=== PATIENT | female | born 1990 | race Caucasian/White ===

== ENCOUNTER 2016-04-15 01:46 | Inpatient (IN) | payer OTHER ==
[~2016-04-15] VITALS: Ht 154.9 cm; Wt 80.2 kg
[2016-04-15] MEDS ORDERED: IBUPROFEN 800 MG TAB PO ONE (03:00)
[2016-04-15] MEDS ORDERED: HYDROCODONE/APAP (5/325) TAB PO ONE (03:00)
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
[2016-04-15] MEDS ORDERED: SOD CHLORIDE 0.9% 1,000 ML IV SCH (04:57)
[2016-04-15] MEDS ORDERED: ONDANSETRON 4 MG INJ IV PRN (05:00)
[2016-04-15] MEDS ORDERED: ACETAMINOPHEN 325 MG TAB PO PRN ×2 (05:00→05:30)
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
--- NOTE | 2016-04-15 05:25 | RADRPT ---
PROCEDURE: XR Chest. CLINICAL INDICATION: Chest pain TECHNIQUE: A single AP view of the chest was obtained. COMPARISON: None. FINDINGS: No focal airspace opacification, pleural effusion or pneumothorax is seen. The cardiomediastinal si lhouette is within normal limits for size. The osseous structures are unremarkable. IMPRESSION: No radiographic evidence of acute cardiopulmonary disease. RPTAT: HH .Katie Corado MD, MD Date Time Electronically viewed and signed by .Katie Corado MD, on 04/15/2016 05:24 .G/
[2016-04-15] MEDS ORDERED: DOCUSATE SODIUM 100 MG CAP PO PRN (05:30)
[2016-04-15] MEDS ORDERED: NACL 0.9% 3 ML SYG IV SCH (05:30)
[2016-04-15] MEDS: SOD CHLORIDE 0.9% 1,000 ML IV SCH ×2 (05:41→16:23)
[2016-04-15 05:46] LABS: ALBUMIN 3.9 g/dl (3.3-4.9); POTASSIUM 4.1 mmol/L (3.5-5.1)
[2016-04-15 05:49] LABS: ALBUMIN/GLOBULIN RATIO 1.21; BILIRUBIN,INDIRECT 0.2 mg/dl (0-1.1); BILIRUBIN,TOTAL 0.2 mg/dl (0.2-1.3); CALCIUM 8.7 mg/dl (8.4-10.2); CREATININE 0.77 mg/dl (0.44-1.00); INR 1.03; PARTIAL THROMBOPLASTIN TIME 30.1 Sec (25.0-35.0); PROTIME 13.5 Sec (12.2-14.2); PT RATIO 1.1; TOTAL PROTEIN 7.1 g/dl (6.1-8.1)
[2016-04-15 05:54] LABS: BASOPHILS % 0.4 % (0.0-2.0); EOSINOPHILS % 0.1 % (0.0-7.0); HEMATOCRIT 35.7 % (37.0-47.0); HEMOGLOBIN 12.4 g/dl (12.0-16.0); LYMPHOCYTES # 2.2 10^3/ul (0.8-2.9); LYMPHOCYTES % 20.1 % (15.0-51.0); MEAN CORPUSCULAR HEMOGLOBIN 29.9 pg (29.0-33.0); MEAN CORPUSCULAR HGB CONC 34.8 g/dl (32.0-37.0); MEAN PLATELET VOLUME 8.4 fl (7.4-10.4); MONOCYTE # 0.8 10^3/ul (0.3-0.9); MONOCYTES % 7.1 % (0.0-11.0); NEUTROPHIL # 7.8 10^3/ul (1.6-7.5); NEUTROPHILS % 72.3 % (39.0-77.0); PLATELET COUNT 251 10^3/UL (140-440); RED BLOOD COUNT 4.15 10^6/ul (4.20-5.40); RED CELL DISTRIBUTION WIDTH 13.8 % (11.5-14.5); UNCORRECTED WBC 10.8 10^3/ul (4.8-10.8); WHITE BLOOD COUNT 10.8 10^3/ul (4.8-10.8)
[2016-04-15 06:01] LABS: CONDITION 1
[2016-04-15] MEDS: morphine 2 MG INJ IV PRN (14:11)
[2016-04-15] MEDS: FAMOTIDINE 20 MG INJ IV SCH ×2 (14:11→21:48)
[2016-04-15] MEDS: ONDANSETRON 4 MG INJ IV PRN (14:11)
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
[2016-04-15 16:05] VITALS: TEMP 98.6
[2016-04-15 16:24] VITALS: BP 117/75; PULSE 69; RESP 18
[2016-04-15] MEDS: HYDROmorphONE 1 MG/ML SYG IV PRN (16:28)
[2016-04-15 16:37] VITALS: Ht 154.9 cm; Wt 80.2 kg
[2016-04-15] MEDS ORDERED: INFLUENZA VIRUS VACCINE 0.5 ML SYG IM* ONE (17:00)
[2016-04-15 19:00] VITALS: BP 119/74; RESP 16
[2016-04-16] MEDS: ONDANSETRON 4 MG INJ IV PRN (05:22)
[2016-04-16] MEDS: HYDROmorphONE 1 MG/ML SYG IV PRN ×3 (05:24→21:02)
[2016-04-16] MEDS: SOD CHLORIDE 0.9% 1,000 ML IV SCH ×3 (05:29→18:38)
[2016-04-16 06:05] LABS: BASOPHILS % 0.4 % (0.0-2.0); EOSINOPHILS # 0.1 10^3/ul (0.0-0.5); EOSINOPHILS % 0.9 % (0.0-7.0); HEMATOCRIT 37.1 % (37.0-47.0); HEMOGLOBIN 12.4 g/dl (12.0-16.0); LYMPHOCYTES # 2.2 10^3/ul (0.8-2.9); LYMPHOCYTES % 26.3 % (15.0-51.0); MEAN CORPUSCULAR HEMOGLOBIN 29.4 pg (29.0-33.0); MEAN CORPUSCULAR HGB CONC 33.4 g/dl (32.0-37.0); MEAN PLATELET VOLUME 8.4 fl (7.4-10.4); MONOCYTE # 0.5 10^3/ul (0.3-0.9); MONOCYTES % 6.4 % (0.0-11.0); NEUTROPHIL # 5.4 10^3/ul (1.6-7.5); PLATELET COUNT 235 10^3/UL (140-440); RED BLOOD COUNT 4.21 10^6/ul (4.20-5.40); RED CELL DISTRIBUTION WIDTH 13.7 % (11.5-14.5); UNCORRECTED WBC 8.2 10^3/ul (4.8-10.8); WHITE BLOOD COUNT 8.2 10^3/ul (4.8-10.8)
[2016-04-16 06:06] LABS: CREATININE 0.79 mg/dl (0.44-1.00)
[2016-04-16 06:07] LABS: CALCIUM 8.4 mg/dl (8.4-10.2)
[2016-04-16 06:08] LABS: MAGNESIUM 1.9 mg/dl (1.7-2.5)
[2016-04-16 06:45] LABS: CONDITION 1
[2016-04-16 07:16] VITALS: BP 108/56; RESP 16
[2016-04-16 07:58] LABS: THYROID STIMULATING HORMONE 0.723 MIU/L (0.465-4.680)
[2016-04-16] MEDS: FAMOTIDINE 20 MG INJ IV SCH ×2 (08:51→21:02)
[2016-04-16] MEDS: morphine 2 MG INJ IV PRN (12:31)
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
[2016-04-16] MEDS: ENOXAPARIN 40 MG/0.4 ML SYG SC SCH (15:48)
[2016-04-16 20:22] VITALS: BP 109/57; RESP 16
[2016-04-17] MEDS: SOD CHLORIDE 0.9% 1,000 ML IV SCH ×3 (07:32→21:22)
[2016-04-17] MEDS: FAMOTIDINE 20 MG INJ IV SCH ×2 (08:25→21:23)
[2016-04-17 08:28] VITALS: BP 108/65; RESP 18
[2016-04-17] MEDS: ENOXAPARIN 40 MG/0.4 ML SYG SC SCH (08:29)
--- NOTE | 2016-04-17 09:29 | RADRPT ---
Vent Rate: 56 bpm RR Interval: 0 msec SC Interval: 138 msec QRS Duration: 84 msec QT Interval: 356 msec QTC Interval: 343 msec P-R-T Binger: 35 - 47 - 43 degrees Sinus bradycardia with sinus arrhythmia Otherwise normal ECG Electronically Signed By: Ish Gonzalez [id number]
[2016-04-17] MEDS: HYDROmorphONE 1 MG/ML SYG IV PRN ×3 (10:00→19:01)
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
[2016-04-17 19:34] VITALS: BP 120/74; RESP 20
[2016-04-18] VITALS (20 sets, daily range): BP systolic 91–124; BP diastolic 38–79; PULSE 54–76; RESP 10–29
[2016-04-18] MEDS: SOD CHLORIDE 0.9% 1,000 ML IV SCH (00:04)
[2016-04-18] MEDS: HYDROmorphONE 1 MG/ML SYG IV PRN ×2 (01:28→22:42)
[2016-04-18 05:41] LABS: BASOPHILS % 0.3 % (0.0-2.0); EOSINOPHILS # 0.1 10^3/ul (0.0-0.5); EOSINOPHILS % 0.9 % (0.0-7.0); HEMATOCRIT 39.5 % (37.0-47.0); HEMOGLOBIN 13.4 g/dl (12.0-16.0); LYMPHOCYTES # 2.7 10^3/ul (0.8-2.9); LYMPHOCYTES % 30.2 % (15.0-51.0); MEAN CORPUSCULAR HEMOGLOBIN 30.1 pg (29.0-33.0); MEAN CORPUSCULAR VOLUME 88.4 fl (82.0-101.0); MONOCYTE # 0.6 10^3/ul (0.3-0.9); MONOCYTES % 6.9 % (0.0-11.0); NEUTROPHIL # 5.6 10^3/ul (1.6-7.5); NEUTROPHILS % 61.7 % (39.0-77.0); PLATELET COUNT 260 10^3/UL (140-440); RED BLOOD COUNT 4.47 10^6/ul (4.20-5.40); RED CELL DISTRIBUTION WIDTH 13.5 % (11.5-14.5); UNCORRECTED WBC 9.1 10^3/ul (4.8-10.8); WHITE BLOOD COUNT 9.1 10^3/ul (4.8-10.8)
[2016-04-18 06:14] LABS: POTASSIUM 4.3 mmol/L (3.5-5.1)
[2016-04-18 06:16] LABS: CREATININE 0.75 mg/dl (0.44-1.00)
[2016-04-18 07:00] LABS: CONDITION 1
[2016-04-18] MEDS ORDERED: BUPIVACAINE 0.5% (SDV) 30 ML INJ ONE (07:17)
[2016-04-18] MEDS ORDERED: CEFAZOLIN 1 GM INJ ONE ×2 (07:17→15:06)
[2016-04-18] MEDS ORDERED: GELATIN SIZE 100 SPONGE ONE (07:17)
[2016-04-18] MEDS ORDERED: LIDOCAINE 0.5%/EPI (MDV) 50 ML INJ ONE (07:17)
[2016-04-18] MEDS ORDERED: THROMBIN 5000 UNIT VIAL ONE ×2 (07:18→12:52)
[2016-04-18] MEDS ORDERED: HEPARIN 1000 UNITS/ML 10 ML INJ ONE (07:18)
[2016-04-18] MEDS ORDERED: MIDAZOLAM 1 MG/ML 2 ML INJ ONE (07:39)
[2016-04-18] MEDS ORDERED: DEXAMETHASONE 4 MG/ML 1 ML INJ ONE ×2 (08:32→17:23)
[2016-04-18] MEDS ORDERED: SODIUM CL BACTERIOSTATIC 30 ML INJ ONE (08:53)
[2016-04-18] MEDS: ENOXAPARIN 40 MG/0.4 ML SYG SC SCH (09:00)
[2016-04-18] MEDS: FAMOTIDINE 20 MG INJ IV SCH (09:00)
[2016-04-18] MEDS ORDERED: ONDANSETRON 4 MG INJ IV PRN ×2 (13:30→18:00)
[2016-04-18] MEDS ORDERED: DIPHENHYDRAMINE 50 MG INJ IV PRN (13:30)
[2016-04-18] MEDS ORDERED: FENTAnyl 50 MCG/ML VIAL IV PRN (13:30)
[2016-04-18] MEDS ORDERED: HYDROmorphONE (0.2 MG/ML) 10ML SYG IV PRN ×2 (13:30)
[2016-04-18] MEDS ORDERED: MEPERIDINE 25 MG INJ IV PRN (13:30)
[2016-04-18] MEDS ORDERED: PHENYLephrine (100 MCG/ML) 5ML SYG ONE ×3 (14:22→15:40)
[2016-04-18] MEDS ORDERED: morphine 10 MG INJ ONE (15:27)
[2016-04-18] MEDS ORDERED: PROPOFOL 20 ML ONE (17:10)
[2016-04-18] MEDS ORDERED: GLYCOPYRROLATE 1 MG INJ ONE (17:10)
[2016-04-18] MEDS ORDERED: LIDOCAINE 2% (SDV) 5 ML INJ ONE (17:10)
[2016-04-18] MEDS ORDERED: ROCURONIUM 50 MG INJ ONE (17:10)
[2016-04-18] MEDS ORDERED: ONDANSETRON 4 MG INJ ONE ×2 (17:10→17:23)
[2016-04-18] MEDS ORDERED: NEOSTIGMINE 3 MG/3 ML SYRINGE ONE (17:10)
[2016-04-18] MEDS ORDERED: METOCLOPRAMIDE 10 MG INJ ONE (17:22)
[2016-04-18] MEDS ORDERED: FENTAnyl 50 MCG/ML VIAL ONE (17:26)
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
[2016-04-18] MEDS ORDERED: NALOXONE (0.4 MG/ML) INJ IV PRN (18:00)
[2016-04-18] MEDS ORDERED: BISACODYL 10 MG SUPP PR PRN (18:00)
[2016-04-18 18:36] LABS: POTASSIUM 4.3 mmol/L (3.5-5.1)
[2016-04-18 18:38] LABS: CREATININE 0.93 mg/dl (0.44-1.00)
[2016-04-18 18:39] LABS: CALCIUM 7.1 mg/dl (8.4-10.2)
[2016-04-18 18:40] LABS: HEMATOCRIT 29.4 % (37.0-47.0); HEMOGLOBIN 10.1 g/dl (12.0-16.0); MEAN CORPUSCULAR HEMOGLOBIN 30.2 pg (29.0-33.0); MEAN CORPUSCULAR HGB CONC 34.2 g/dl (32.0-37.0); MEAN CORPUSCULAR VOLUME 88.4 fl (82.0-101.0); PLATELET COUNT 246 10^3/UL (140-440); RED BLOOD COUNT 3.33 10^6/ul (4.20-5.40); RED CELL DISTRIBUTION WIDTH 13.1 % (11.5-14.5)
[2016-04-18 18:43] LABS: CONDITION 1; LH ANALYZER COMMENTS 1
[2016-04-18 19:32] LABS: LYMPHOCYTES # 1.1 10^3/ul (0.8-2.9); MONOCYTE # 0.4 10^3/ul (0.3-0.9); NEUTROPHIL # 14.6 10^3/ul (1.6-7.5)
--- NOTE | 2016-04-18 19:49 | PN ---
Date/Time of Note Date/Time of Note DATE: 04/18/16 TIME: 19:47 Assessment/Plan VTE Prophylaxis VTE Prophylaxis Intervention: LMWH Lines/Catheters IV Catheter Type (from Nrsg): Peripheral IV Assessment/Plan Chief Complaint/Hosp Course 1. Lumbar pain - / to L4 burst fracture -Surgery with Neurosurgery (Dr. Bautista) today -pt has no Hx of Cardiac disorders and has no cardiac risk factors, benefits of surgery outweigh the risks -pain control PPx- Lovenox Problems: Subjective 24 Hr Interval Summary Musculoskeletal: back pain Exam/Review of Systems Vital Signs Vitals Vital Signs Date Time Temp Pulse Resp B/P Pulse Ox O2 Delivery O2 Flow Rate FiO2 04/18/16 18:20 98.0 04/18/16 18:06 64 12 100/54 100 Nasal Cannula 04/18/16 17:46 2.0 Intake and Output 04/17/16 04/17/16 04/18/16 15:00 23:00 07:00 Intake Total 1470 ml 750 ml 1180 ml Output Total 600 ml 600 ml Balance 870 ml 750 ml 580 ml Exam Constitutional: alert, oriented Respiratory: clear to auscultation Cardiovascular: regular rate and rhythm Gastrointestinal: soft, No distended Musculoskeletal: nl extremities to inspection Results Result Diagram: 04/18/16 1810 04/18/16 1810 Results 24 hrs Laboratory Tests Test 04/18/16 05:15 04/18/16 18:10 Anion Gap 14 15 Basophils # 0.0 Basophils % 0.3 Blood Urea Nitrogen 13 16 Calcium Level 9.0 7.1 L Carbon Dioxide Level 28 22 Chloride Level 103 105 Creatinine 0.75 0.93 Eosinophils # 0.1 Eosinophils % 0.9 Glucose Level 92 195 # Hematocrit 39.5 29.4 #L Hemoglobin 13.4 10.1 #L Lymphocytes # 2.7 1.1 Lymphocytes % 30.2 6.0 L Magnesium Level 2.0 Mean Corpuscular Hemoglobin 30.1 30.2 Mean Corpuscular Hemoglobin Concent 34.0 34.2 Mean Corpuscular Volume 88.4 88.4 Mean Platelet Volume 8.0 8.0 Monocytes # 0.6 0.4 Monocytes % 6.9 2.0 Neutrophils # 5.6 14.6 H Neutrophils % 61.7 77.0 Nucleated Red Blood Cells # 0.0 Nucleated Red Blood Cells % 0.0 0.0 Phosphorus Level 4.0 Platelet Count 260 246 Potassium Level 4.3 4.3 Red Blood Count 4.47 3.33 #L Red Cell Distribution Width 13.5 13.1 Sodium Level 141 138 White Blood Count 9.1 19.0 #H Band Neutrophils % 15.0 H Medications Medications Current Medications Enoxaparin Sodium 40 mg 40 mg DAILY SC Last administered on 04/17/16t 08:29; Admin Dose 40 MG; Start 04/16/16 at 13:30 Potassium Chloride/Dextrose/ Sod Cl (D5-1/2ns + KCl 20 Meq) 1,000 ml @ 100 mls/ hr Q10H IV ; Start 04/18/16 at 18:15 Acetaminophen/ Hydrocodone Bitart ([place]om (10/325)) 2 tab Q6 PO ; Start 04/18/16 at 18:00 Tramadol HCl (Ultram) 50 mg Q6 PO ; Start 04/18/16 at 18:00 Hydromorphone HCl 0.4 mg 0.4 mg Q1H PRN IV BREAKTHROUGH PAIN; Start 04/18/16 at 18:00 Cefazolin Sodium (Ancef 1 Gm/50 ml (Pmx)) 50 ml @ 100 mls/hr Q8 IVPB ; Start at 20:00; Stop 04/19/16 at 14:29 Ondansetron HCl (Zofran Inj) 4 mg Q6H PRN IV NAUSEA AND/OR VOMITING; Start 04/18 at 18:00 Bisacodyl (Dulcolax Supp) 10 mg DAILY PRN [place] CONSTIPATION; Start 04/18/16 at 18: 00 Docusate Sodium (Colace) 100 mg BID PO ; Start 04/18/16 at 21:00 Pantoprazole (Protonix Iv) 40 mg DAILY@06 IV ; Start 04/19/16 at 06:00 Cyclobenzaprine HCl (Flexeril) 5 mg TID PO ; Start 04/18/16 at 21:00 Naloxone HCl (Narcan) 0.2 mg Q2M PRN IV RR 8 BREATHS/MIN OR LESS; Start at 18:00 HUMA HERNANDEZ Apr 18, 2016 19:49
[2016-04-18] MEDS: CEFAZOLIN 1 GM/50 ML (PMX) 50 ML IVPB SCH (20:23)
[2016-04-18] MEDS: D5W-0.45 NACL + KCL 20 MEQ 1,000 ML IV SCH (20:23)
[2016-04-18] MEDS: DOCUSATE SODIUM 100 MG CAP PO SCH (20:24)
[2016-04-18] MEDS: HYDROCODONE/APAP (10/325) TAB PO SCH (20:25)
[2016-04-18] MEDS: traMADol 50 MG TAB PO SCH (20:25)
[2016-04-18] MEDS: CYCLOBENZAPRINE 10 MG TAB PO SCH (22:06)
[2016-04-19] VITALS (15 sets, daily range): BP systolic 94–121; BP diastolic 51–75; PULSE 85–150; RESP 16–20
[2016-04-19] MEDS: HYDROmorphONE 1 MG/ML SYG IV PRN ×7 (03:19→21:38)
[2016-04-19] MEDS: D5W-0.45 NACL + KCL 20 MEQ 1,000 ML IV SCH ×3 (04:15→14:15)
[2016-04-19] MEDS: PANTOPRAZOLE 40 MG INJ IV SCH (05:44)
[2016-04-19] MEDS: CEFAZOLIN 1 GM/50 ML (PMX) 50 ML IVPB SCH ×2 (05:45→13:36)
[2016-04-19] MEDS: HYDROCODONE/APAP (10/325) TAB PO SCH ×5 (05:46→23:32)
[2016-04-19] MEDS: traMADol 50 MG TAB PO SCH ×5 (05:46→23:32)
[2016-04-19 06:55] LABS: BASOPHILS % 0.3 % (0.0-2.0); HEMATOCRIT 20.8 % (37.0-47.0); HEMOGLOBIN 7.3 g/dl (12.0-16.0); LYMPHOCYTES % 18.2 % (15.0-51.0); MEAN CORPUSCULAR HEMOGLOBIN 30.5 pg (29.0-33.0); MEAN CORPUSCULAR HGB CONC 34.8 g/dl (32.0-37.0); MEAN CORPUSCULAR VOLUME 87.7 fl (82.0-101.0); MEAN PLATELET VOLUME 7.9 fl (7.4-10.4); MONOCYTE # 1.1 10^3/ul (0.3-0.9); MONOCYTES % 10.7 % (0.0-11.0); NEUTROPHIL # 7.6 10^3/ul (1.6-7.5); NEUTROPHILS % 70.8 % (39.0-77.0); PLATELET COUNT 188 10^3/UL (140-440); RED BLOOD COUNT 2.38 10^6/ul (4.20-5.40); RED CELL DISTRIBUTION WIDTH 13.4 % (11.5-14.5); UNCORRECTED WBC 10.8 10^3/ul (4.8-10.8); WHITE BLOOD COUNT 10.8 10^3/ul (4.8-10.8)
[2016-04-19 07:08] LABS: POTASSIUM 4.5 mmol/L (3.5-5.1)
[2016-04-19 07:10] LABS: CREATININE 0.73 mg/dl (0.44-1.00)
[2016-04-19 07:11] LABS: CALCIUM 7.3 mg/dl (8.4-10.2); MAGNESIUM 1.8 mg/dl (1.7-2.5)
[2016-04-19 08:14] LABS: CONDITION 1; LH ANALYZER COMMENTS 1
[2016-04-19] MEDS: CYCLOBENZAPRINE 10 MG TAB PO SCH ×3 (08:40→21:37)
[2016-04-19] MEDS: DOCUSATE SODIUM 100 MG CAP PO SCH ×2 (08:40→21:37)
[2016-04-19] MEDS: ENOXAPARIN 40 MG/0.4 ML SYG SC SCH (08:54)
--- NOTE | 2016-04-19 12:48 | PN ---
Date/Time of Note Date/Time of Note DATE: 04/19/16 TIME: 12:47 Assessment/Plan VTE Prophylaxis VTE Prophylaxis Intervention: LMWH Lines/Catheters IV Catheter Type (from Nrsg): Peripheral IV Assessment/Plan Chief Complaint/Hosp Course 1. Lumbar pain - 2/2 to L4 burst fracture -s/p surgical repair with Neurosurgery (Dr. Bautista) POD#1 -pain control PPx- Lovenox Problems: Subjective 24 Hr Interval Summary Musculoskeletal: back pain Exam/Review of Systems Vital Signs Vitals Vital Signs Date Time Temp Pulse Resp B/P Pulse Ox O2 Delivery O2 Flow Rate FiO2 04/19/16 11:39 98.3 100 18 117/58 100 04/19/16 10:00 Room Air 04/18/16 17:46 2.0 Intake and Output 04/18/16 04/18/16 04/19/16 15:00 23:00 07:00 Intake Total 450 ml 3300 ml 1140 ml Output Total 1640 ml 970 ml Balance 450 ml 1660 ml 170 ml Exam Constitutional: alert, oriented Respiratory: clear to auscultation Cardiovascular: regular rate and rhythm Gastrointestinal: soft, No distended Musculoskeletal: nl extremities to inspection Results Result Diagram: 04/19/16 0631 04/19/16 0631 Results 24 hrs Laboratory Tests Test 04/18/16 18:10 04/19/16 06:31 Anion Gap 15 11 Band Neutrophils % 15.0 H Basophils # 0.0 Basophils % 0.3 Blood Urea Nitrogen 16 13 Calcium Level 7.1 L 7.3 L Carbon Dioxide Level 22 26 Chloride Level 105 105 Creatinine 0.93 0.73 Eosinophils # 0.0 Eosinophils % 0.0 Glucose Level 195 # 124 # Hematocrit 29.4 #L 20.8 #L Hemoglobin 10.1 #L 7.3 #L Lymphocytes # 1.1 2.0 Lymphocytes % 6.0 L 18.2 Mean Corpuscular Hemoglobin 30.2 30.5 Mean Corpuscular Hemoglobin Concent 34.2 34.8 Mean Corpuscular Volume 88.4 87.7 Mean Platelet Volume 8.0 7.9 Monocytes # 0.4 1.1 H Monocytes % 2.0 10.7 Neutrophils # 14.6 H 7.6 H Neutrophils % 77.0 70.8 Nucleated Red Blood Cells # 0.0 Nucleated Red Blood Cells % 0.0 0.0 Platelet Count 246 188 # Potassium Level 4.3 4.5 Red Blood Count 3.33 #L 2.38 #L Red Cell Distribution Width 13.1 13.4 Sodium Level 138 137 White Blood Count 19.0 #H 10.8 # Blood Morphology Comment Magnesium Level 1.8 Medications Medications Current Medications Enoxaparin Sodium 40 mg 40 mg DAILY SC Last administered on 04/19/16 08:54; Admin Dose 40 MG; Start 04/16/16 at 13:30 Potassium Chloride/Dextrose/ Sod Cl (D5-1/2ns + KCl 20 Meq) 1,000 ml @ 100 mls/ hr Q10H IV Last administered on 04/19/16 05:54; Admin Dose 100 MLS/HR; Start at 18:15 Acetaminophen/ Hydrocodone Bitart ([place] (10/325)) 2 tab Q6 PO Last administered on 04/19/16 11:46; Admin Dose 2 TAB; Start 04/18/16 at 18:00 Tramadol HCl (Ultram) 50 mg Q6 PO Last administered on 04/19/16 11:46; Admin Dose 50 MG; Start 04/18/16 at 18:00 Hydromorphone HCl 0.4 mg 0.4 mg Q1H PRN IV BREAKTHROUGH PAIN Last administered on 04/19/16 10:25; Admin Dose 0.4 MG; Start 04/18/16 at 18:00 Cefazolin Sodium (Ancef 1 Gm/50 ml (Pmx)) 50 ml @ 100 mls/hr Q8 IVPB Last administered on 04/19/16 05:45; Admin Dose 100 MLS/HR; Start 04/18/16 at 20:00; Stop 04/19/16 at 14:29 Ondansetron HCl (Zofran Inj) 4 mg Q6H PRN IV NAUSEA AND/OR VOMITING Last administered on 04/18/16 20:31; Admin Dose 4 MG; Start 04/18/16 at 18:00 Bisacodyl (Dulcolax Supp) 10 mg DAILY PRN [place] CONSTIPATION; Start 04/18/16 at 18: 00 Docusate Sodium (Colace) 100 mg BID PO Last administered on 04/19/16 08:40; Admin Dose 100 MG; Start 04/18/16 at 21:00 Pantoprazole (Protonix Iv) 40 mg DAILY@06 IV Last administered on 04/19/16 05: 44; Admin Dose 40 MG; Start 04/19/16 at 06:00 Cyclobenzaprine HCl (Flexeril) 5 mg TID PO Last administered on 04/19/16 08:40 ; Admin Dose 5 MG; Start 04/18/16 at 21:00 Naloxone HCl (Narcan) 0.2 mg Q2M PRN IV RR 8 BREATHS/MIN OR LESS; Start at 18:00 HUMA HERNANDEZ Apr 19, 2016 12:48
[2016-04-20] VITALS (16 sets, daily range): BP systolic 96–128; BP diastolic 50–65; PULSE 89–114; RESP 16–20
[2016-04-20] MEDS: HYDROmorphONE 1 MG/ML SYG IV PRN ×6 (01:51→20:35)
[2016-04-20] MEDS: PANTOPRAZOLE 40 MG INJ IV SCH (05:39)
[2016-04-20] MEDS: HYDROCODONE/APAP (10/325) TAB PO SCH ×3 (05:40→18:18)
[2016-04-20] MEDS: traMADol 50 MG TAB PO SCH ×3 (05:40→18:18)
[2016-04-20 05:48] LABS: POTASSIUM 3.8 mmol/L (3.5-5.1)
[2016-04-20 05:51] LABS: CREATININE 0.62 mg/dl (0.44-1.00)
[2016-04-20 05:52] LABS: CALCIUM 7.4 mg/dl (8.4-10.2)
--- NOTE | 2016-04-20 08:46 | PN ---
Date/Time of Note Date/Time of Note DATE: 04/20/16 TIME: 08:44 Assessment/Plan VTE Prophylaxis VTE Prophylaxis Intervention: LMWH Lines/Catheters IV Catheter Type (from Nrsg): Peripheral IV Assessment/Plan Assessment/Plan 1. Lumbar pain - 2/ to L4 burst fracture -s/p surgical repair with Neurosurgery (Dr. Bautista) 04/18/16 -drains remain in place -pain control 2. Anemia ? blood loss frm surgery -Transfuse 2 units -iron profile -SOBT PPx- Lovenox Subjective 24 Hr Interval Summary Free Text/Dictation Patient seen and examined. ne new issues, still lethargic denies bleeding or black stools, denies heavy periods Gastrointestinal: constipation Exam/Review of Systems Vital Signs Vitals Vital Signs Date Time Temp Pulse Resp B/P Pulse Ox O2 Delivery O2 Flow Rate FiO2 04/20/16 07:48 98.7 95 16 97/54 98 04/20/16 00:58 Room Air 04/18/16 17:46 2.0 Intake and Output 04/19/16 04/19/16 04/20/16 15:00 23:00 07:00 Intake Total 200 ml 1750 ml 350 ml Output Total 110 ml 1960 ml 5 ml Balance 90 ml -210 ml 345 ml Exam Constitutional: alert, oriented Respiratory: clear to auscultation Cardiovascular: regular rate and rhythm Gastrointestinal: soft, No distended Musculoskeletal: nl extremities to inspection, drains in lower back Results Result Diagram: 04/19/16 0631 04/20/16 0440 Results 24 hrs Laboratory Tests Test 04/20/16 04:40 Anion Gap 9 Blood Urea Nitrogen 10 Calcium Level 7.4 L Carbon Dioxide Level 29 Chloride Level 103 Creatinine 0.62 Glucose Level 90 Potassium Level 3.8 Sodium Level 137 Medications Medications Current Medications Enoxaparin Sodium (Lovenox) 40 mg DAILY SC Last administered on 04/19/16 08:54 ; Admin Dose 40 MG; Start 04/16/16 at 13:30 Acetaminophen/ Hydrocodone Bitart (Balsam (10/325)) 2 tab Q6 PO Last administered on 04/20/16 05:40; Admin Dose 2 TAB; Start 04/18/16 at 18:00 Tramadol HCl (Ultram) 50 mg Q6 PO Last administered on 04/20/16 05:40; Admin Dose 50 MG; Start 04/18/16 at 18:00 Hydromorphone HCl (Dilaudid) 0.4 mg Q1H PRN IV BREAKTHROUGH PAIN Last administered on 04/20/16 07:21; Admin Dose 0.4 MG; Start 04/18/16 at 18:00 Ondansetron HCl (Zofran Inj) 4 mg Q6H PRN IV NAUSEA AND/OR VOMITING Last administered on 04/18/16 20:31; Admin Dose 4 MG; Start 04/18/16 at 18:00 Bisacodyl (Dulcolax Supp) 10 mg DAILY PRN [place] CONSTIPATION; Start 04/18/16 at 18: 00 Docusate Sodium (Colace) 100 mg BID PO Last administered on 04/19/16 21:37; Admin Dose 100 MG; Start 04/18/16 at 21:00 Pantoprazole (Protonix Iv) 40 mg DAILY@06 IV Last administered on 04/20/16 05: 39; Admin Dose 40 MG; Start 04/19/16 at 06:00 Cyclobenzaprine HCl (Flexeril) 5 mg TID PO Last administered on 04/19/16 21:37 ; Admin Dose 5 MG; Start 04/18/16 at 21:00 Naloxone HCl (Narcan) 0.2 mg Q2M PRN IV RR 8 BREATHS/MIN OR LESS; Start at 18:00 JORGE SANCHEZ Apr 20, 2016 08:46
[2016-04-20 08:49] LABS: RED BLOOD COUNT 1.95 10^6/ul (4.20-5.40); UNCORRECTED WBC 8.7 10^3/ul (4.8-10.8)
[2016-04-20 08:51] LABS: HEMATOCRIT 17.4 % (37.0-47.0); HEMOGLOBIN 5.8 g/dl (12.0-16.0); MEAN CORPUSCULAR VOLUME 89.2 fl (82.0-101.0)
[2016-04-20 08:53] LABS: MEAN CORPUSCULAR HEMOGLOBIN 29.7 pg (29.0-33.0); MEAN CORPUSCULAR HGB CONC 33.3 g/dl (32.0-37.0)
[2016-04-20 08:54] LABS: MEAN PLATELET VOLUME 9.8 fl (7.4-10.4); PLATELET COUNT 165 10^3/UL (140-440); RED CELL DISTRIBUTION WIDTH 13.3 % (11.5-14.5)
[2016-04-20 08:58] LABS: LYMPHOCYTES # 3.2 10^3/ul (0.8-2.9); MONOCYTE # 0.3 10^3/ul (0.3-0.9); NEUTROPHIL # 5.1 10^3/ul (1.6-7.5)
[2016-04-20] MEDS: ENOXAPARIN 40 MG/0.4 ML SYG SC SCH (09:00)
[2016-04-20] MEDS: DOCUSATE SODIUM 100 MG CAP PO SCH ×2 (09:03→20:34)
[2016-04-20] MEDS: CYCLOBENZAPRINE 10 MG TAB PO SCH ×3 (09:03→20:35)
[2016-04-20 10:44] LABS: HEMATOCRIT 18.3 % (37.0-47.0); HEMOGLOBIN 6.2 g/dl (12.0-16.0)
[2016-04-20 11:45] LABS: IRON < 10 ug/dl (35-150)
[2016-04-20 11:53] LABS: TOTAL IRON BINDING CAPACITY 208 ug/dl (241-421)
[2016-04-20 12:28] LABS: WHITE BLOOD COUNT 8.7 10^3/ul (4.8-10.8)
[2016-04-20] MEDS ORDERED: MAGNESIUM CITRATE 300 ML BTL PO ONE (13:00)
[2016-04-20] MEDS ORDERED: DIPHENHYDRAMINE 50 MG INJ IV ONE (20:30)
[2016-04-20] MEDS: ACETAMINOPHEN 325 MG TAB PO PRN ×2 (20:34→23:34)
[2016-04-21 00:15] VITALS: BP 97/51; PULSE 90; RESP 18
[2016-04-21] MEDS: traMADol 50 MG TAB PO SCH ×3 (00:31→12:17)
[2016-04-21] MEDS: HYDROCODONE/APAP (10/325) TAB PO SCH ×3 (00:31→11:48)
[2016-04-21 01:18] VITALS: BP 102/50; PULSE 85; RESP 14
[2016-04-21 02:12] VITALS: BP 96/63; PULSE 88; RESP 14
[2016-04-21] MEDS: HYDROmorphONE 1 MG/ML SYG IV PRN ×3 (02:51→08:26)
[2016-04-21 03:29] VITALS: BP 90/60; PULSE 80; RESP 16
[2016-04-21] MEDS: PANTOPRAZOLE 40 MG INJ IV SCH (05:52)
[2016-04-21 07:38] VITALS: BP 115/61; RESP 18
[2016-04-21] MEDS: DOCUSATE SODIUM 100 MG CAP PO SCH (08:26)
[2016-04-21] MEDS: CYCLOBENZAPRINE 10 MG TAB PO SCH ×2 (08:26→12:17)
[2016-04-21] MEDS: ENOXAPARIN 40 MG/0.4 ML SYG SC SCH (08:32)
[2016-04-21 08:59] LABS: BASOPHILS % 0.2 % (0.0-2.0); EOSINOPHILS % 0.4 % (0.0-7.0); HEMATOCRIT 27.2 % (37.0-47.0); HEMOGLOBIN 9.2 g/dl (12.0-16.0); LYMPHOCYTES # 1.2 10^3/ul (0.8-2.9); LYMPHOCYTES % 20.6 % (15.0-51.0); MEAN CORPUSCULAR HEMOGLOBIN 28.9 pg (29.0-33.0); MEAN CORPUSCULAR HGB CONC 33.9 g/dl (32.0-37.0); MEAN CORPUSCULAR VOLUME 85.3 fl (82.0-101.0); MEAN PLATELET VOLUME 7.6 fl (7.4-10.4); MONOCYTE # 0.4 10^3/ul (0.3-0.9); MONOCYTES % 7.5 % (0.0-11.0); NEUTROPHILS % 71.3 % (39.0-77.0); PLATELET COUNT 165 10^3/UL (140-440); RED BLOOD COUNT 3.19 10^6/ul (4.20-5.40); RED CELL DISTRIBUTION WIDTH 15.5 % (11.5-14.5); UNCORRECTED WBC 5.7 10^3/ul (4.8-10.8); WHITE BLOOD COUNT 5.7 10^3/ul (4.8-10.8)
[2016-04-21 09:19] LABS: CONDITION 1; LH ANALYZER COMMENTS 1
[2016-04-21 10:19] LABS: PRETRANSFUSION BILIRUBIN 0.1 mg/dl
[2016-04-21 10:20] LABS: POST-TRANSFUSION BILIRUBIN 0.3 mg/dl
[2016-04-21] MEDS ORDERED: TRAM50TA2 PO (12:08)
[2016-04-21] MEDS ORDERED: DOCU-216 PO (12:08)
[2016-04-21] MEDS ORDERED: Hydrocodone/Apap (10/325) PO (12:08)
[2016-04-21] MEDS ORDERED: CYCL-319 PO (12:08)
[2016-04-21] MEDS ORDERED: ASC500 PO (14:14)
[2016-04-21] MEDS ORDERED: FER325 PO (14:14)
--- NOTE | 2016-04-21 14:23 | PDOCDIS ---
Discharge Instructions DIAGNOSIS Discharge Diagnosis: Lumbar spine fracture CONDITION Patient Condition: Stable HOME CARE INSTRUCTIONS: Diet Instructions: RegularSpecial Diet: REGULAR DIET ACTIVITY: Activity Restrictions: Slowly Increase Activity Rest between Activity Avoid heavy lifting Do not operate Machinery Do not operate Power Tool Avoid Heavy Housework Bathing Restrictions: Shower OTHER ORDERS: Other Orders: f/u with Dr Bautista in 2 weeks SCHOOL/WORK RELEASE May return to School/Work on: May 06, 2016 May return to School/Work with: School/Work Release Comment: Please Restrict patient according to her capabilities. thanks! JORGE SANCHEZ Apr 21, 2016 14:23
--- NOTE | 2016-04-21 23:52 | DS ---
DATE OF ADMISSION: 04/15/2016 DATE OF DISCHARGE: 04/21/2016 FINAL DIAGNOSES: 1. Lumbar pain secondary to L4 burst fracture, status post surgical repair, cleared for outpatient followup by Neurosurgery, Dr. Bautista. 2. Severe anemia, status post transfusion with iron ____, presents with iron deficiency, stable. CARTOON ANIMATOR ON THE CASE: Dr. Faustino Bautista INTERVENTIONS: 1. The patient had an L4 burst fracture repair done 05/06/2016, and she still has drain in her back . She is to be discharged home with home health therapy and nursing assisted care as well as physic al therapy. 2. She had 2 units of packed red cells transfused for a hemoglobin that dropped to 5.6 postoperativ liang. HOSPITALIZATION REPORT: Full details are summarized in the chart for review. In summary, this tiffanie ent had presented with acute onset of back pain, I believe after a fall, and was found to have an L4 burst future. This was repaired surgically by neurosurgeon, and the patient's postoperative course was complicated only a hemoglobin drop to 5.6. This was thought to be dilutional. However, to opt imize her ____ status, the decision was made to transfuse 2 units of packed red cells. The patient tolerated transfusion without difficulty. At this time, she is doing well. She has been ambulating with physical therapy and has been cleared for discharge home by the neurosurgeon. MEDICATIONS: The patient had to be discharged home on the following medications: 1. Ferrous sulfate 325 mg 3 times daily. 2. Vitamin C 500 mg daily. 3. Tramadol tablets as needed. 4. [place] 10/325 one tablet every 6 hours as needed. 5. Flexeril 5 mg p.o. t.i.d. 6. Colace 100 mg p.o. b.i.d. DISPOSITION: To home. Activities as tolerated. FOLLOWUP: She is to follow up with neurosurgeon Dr. Auguste in 2 weeks. RECOMMENDED DIET: Regular. Dictated By: JORGE SANCHEZ MD BA/NTS Conf#: [id number] DID#: [id number]
--- NOTE | 2016-04-23 10:47 | OPR ---
DATE OF OPERATION: 04/18/2016 OPERATING SURGEON: Faustino Bautista MD AUTO GARAGE MECHANIC: Cassidy Levi NP PREOPERATIVE DIAGNOSIS: L4 burst fracture with severe stenosis. POSTOPERATIVE DIAGNOSES: L4 burst fracture with severe stenosis. OPERATION PERFORMED: 1. L3, L4 and L5 decompressive laminectomy. 2. Bilateral L4 to L5 facetectomy. 3. Lateral extracavitary approach for L4 vertebral column resection and total corpectomy including resection of pedicles and the posterior column. 4. Placement of intervertebral cage at L3 to L5 (Globus titanium 20 mm diameter, 30 mm expandable cage). 5. L3 to L5 interbody arthrodesis. 6. L3 to L5 posterior instrumentation. 7. L3 to L5 posterior arthrodesis. 8. Bone marrow aspirate harvest. 9. Morselized local autologous bone graft harvest. 10. Morselized allograft placement (demineralized bone matrix putty). 11. Intraoperative fluoroscopy with professional interpretation. 12. Intraoperative neurophysiologic monitoring including SSEP, MEP, and EMG testing. INDICATION FOR PROCEDURE: Please look at the inpatient consultation note for full set of indication s. DESCRIPTION OF OPERATIVE PROCEDURE: The patient was brought to the operating room. After general a nesthesia was obtained, she was placed prone on top of the open Silverio table. Her arms were abduct ed less than 90 degrees and placed in superman position. All pressure points were noted and padded appropriately. A midline lumbar incision was then marked, centered at the L4 level. After the skin was prepped and draped under standard sterile fashion, local anesthetics were infiltrated into mandi ed incision. The skin was then incised down to the level of the fascia. Subperiosteal dissection w as carried down to spinous processes and lamina from approximately L3 down to the bottom of L5. The re was a gross fracture of the right L4 spinous process and lamina noted similar to what was seen on the CT scan. Then, the L3 and L5 pedicles were cannulated. Probe was used to confirm that no gillian ch to the pedicle hole was made. Then, 6.5 mm diameter RTI [place] pedicle screws were inserted at L3 and L5 bilaterally. The pedicle screws were then tested with EMG testing and all the testing thr esholds were greater than 10 milliamps. A temporary paulette was placed on the right side and the set sc rews were inserted and tightened. We then proceeded with performing decompression of L3, L4 and L5 laminectomies. The bone was harvested for later grafting. Also please note that bone marrow aspira te was harvested while cannulating the pedicles. We then proceeded with performing initially left-s ided L4 to L5 total facetectomy and later doing a contralateral total facetectomy at L4 to L5. The left L4 and subsequently the right L4 pedicle were completely removed. A very large component of th e retropulsed vertebral body fragment was seen causing severe stenosis of the thecal sac on the left side. We then proceeded with doing a corpectomy underneath the retropulsed bone fragment and more anterior to it. All the bone was harvested for later grafting using a combination of drill and Salguero césar rongeurs and pituitary instrument. We then continued with further corpectomy using down pushin g curettes. We then started removing the retropulsed part of the bone fragment going into the canal on the left side. We also started cutting the annulus and the disk material at L3 to L4 and L4 to L 5 levels on the left side. Once we were done with as much corpectomy as can be done on the left holland e, we then placed a temporary paulette on the left side, removed the temporary paulette on the right side and we began doing the contralateral L4 to L5 facetectomy, removal of the L4 pedicle and doing a complet e corpectomy on the right side. There was also another piece of retropulsed bone fragment causing c anal stenosis on the right side. All the bone was removed. A complete vertebral column resection w as finally done. The corpectomy was done all the way to the anterior longitudinal ligament. Comple te diskectomy was done at L3 to L4 and L4 to L5 levels. The endplates were then decorticated. The temporary paulette was again placed on the right side. A temporary paulette on the left side was removed. Th e ventral epidural space was completely decompressed. The remaining anterior shelf of the vertebral body was completely removed using the down pushing curettes. The wound was copiously irrigated wit h antibiotic solution. Complete hemostasis was obtained. At this point, a trial template for the G lobus titanium cage, 20 mm diameter, was then inserted. We then decided to use a 30 mm expandable t itanium cage 20 mm wide. The cage was then packed with a combination of the locally harvested springer lized autologous bone graft together with demineralized bone matrix allograft putty and some bone ma rrow aspirate. The cage was then inserted from the left side. Also please note that the exiting bi lateral L4 nerve roots were completely exposed and mobilized. Slight gentle retraction of the theca l sac and the exiting left L4 nerve root was done in order to be able to insert the expandable cage. The cage was then inserted under direct lateral fluoroscopy. The position of the cage was also traci cked under AP fluoroscopy. The cage was then expanded under direct lateral fluoroscopy. The tempor dionisio paulette on the right side was loosened to allow further expansion. Once as much expansions as could be done was achieved the boat outfitting supervisor was then removed. Also please note that the part of the laminar fracture on the right that caused a small opening of the dura dorsally, 4-0 Nurolon suture was done to reapproximate the small dural tear. A Valsalva maneuver was done and no CSF leak was noted. The n, Tisseel fibrin glue was placed over the dura circumferentially. The rods that were lordotic were then fully tightened with the set screws with counter torque and the torque wrench devices after co mpressing along the pedicles and achieving lumbar lordosis. Then, the remaining combination of biol ogic material as before was placed over the lateral gutters after decorticating also the L3, L4 and L5 transverse processes. A medium Hemovac drain was placed over the epidural space and brought out of the skin away from the incision site. The muscle and fascial layers were then reapproximated wit h interrupted sutures. Then 2 medium Hemovac drains were placed in the epifascial space. The derma l layer was then reapproximated with interrupted sutures and the skin was reapproximated with a simp le running Rapide 3-0 suture. The Hemovac drains were then clearly labeled and secured to the skin with a suture and connected to a Hemovac bags and activated. A sterile dressing was placed on top o f the incision site. The patient's neurophysiologic signals were stable throughout the procedure. The patient was then placed supine on the hospital bed. She was then woken up, extubated and transf erred to the recovery room in stable condition. ESTIMATED BLOOD LOSS: 650 mL. BLOOD PRODUCTS ADMINISTERED: 600 mL from the [employer] autologous blood. CONDITION: Stable. PROGNOSIS: Good. WOUND CLASSIFICATION: Clean. SPECIMEN REMOVED: None. PACKS AND DRAINS: Medium Hemovac drains x3, two medium Hemovac drains in the epifascial space and o ne medium Hemovac drain in the epidural space. SPECIMEN REMOVED: None. TYPE OF ANESTHESIA: General. Dictated By: FAUSTINO BAUTISTA MD SA/NTS Conf#: [id number] DID#: [id number] CC: CASSIDY CAI; ANDREW MCGARRY MD;*EndCC*
--- NOTE | 2016-04-23 10:56 | PN ---
DATE: 04/21/2016 The patient is now postop day 3. She is doing quite good. Her postoperative pain is now much marga r controlled. The patient is now ambulating on her own. She already has her LSO brace in place. H er lumbar incision is completely clean, dry and intact. There has been minimal drain output from t he epidural drain and no drainage from the 2 epifascial drains. The patient's preoperative radiatin g bilateral lower extremity pain has completely resolved. The patient's motor strength in bilateral upper and lower extremities is 5/5 throughout, proximally and distally. The patient is able to voi d spontaneously. The patient's father who is also at bedside is also very pleased with the patient' s progress. I have indicated to the patient's nurse that from a neurosurgery perspective the patien didi can be discharged home today. The patient is to be discharged home with the 2 epifascial drains. She is to have a wound nurse or a home health nurse check on the patient twice this week and for nurse to notify me about any drain output from the 2 drains. If the lumbar incision is clean, dr y and intact, the 2 epifascial drains can be discontinued on after the nurse checks with me . The patient is to follow up with me in clinic in 2 weeks. The patient may shower. She is to maribell p the incision clean, dry and intact and may remove the dressing in the next 3 to 4 days. All the i nstructions I have also given to the patient and her dad. The patient is also to avoid the use of n onsteroidal anti-inflammatory drugs for the next 3 to 4 months. Dictated By: MARIELOS CHAUDHARY MD, SA/BATSHEVA Conf#: [id number] DID#: [id number]
== END 2016-04-21 15:50 | disposition home health service (06) | DRG 460 ==
LOC: FTE 01:46 → MS2 04:57 → TEL 04-18 19:49 → MS1 04-20 00:10
PROVIDERS: ADMIT Student in an Organized Health Care Education/Training Program; ATTEND Student in an Organized Health Care Education/Training Program
PROC: 0SG1071 Fusion of 2 or more Lumbar Vertebral Joints with Autologous Tissue Substitute, Posterior Approach, Posterior Column, Open Approach (ICD-10-PCS; 2016-04-18)
PROC: 0ST20ZZ Resection of Lumbar Vertebral Disc, Open Approach (ICD-10-PCS; 2016-04-18)
PROC: 00UT0JZ Supplement Spinal Meninges with Synthetic Substitute, Open Approach (ICD-10-PCS; 2016-04-18)
PROC: 07DS3ZZ Extraction of Vertebral Bone Marrow, Percutaneous Approach (ICD-10-PCS; 2016-04-18)
PROC: 4A11X4G Monitoring of Peripheral Nervous Electrical Activity, Intraoperative, External Approach (ICD-10-PCS; 2016-04-18)
PROC: 30233H0 Transfusion of Autologous Whole Blood into Peripheral Vein, Percutaneous Approach (ICD-10-PCS; 2016-04-18)
PROC: 0SG10A1 (ICD-10-PCS; principal; 2016-04-18 07:30)
PROC: 30233N1 Transfusion of Nonautologous Red Blood Cells into Peripheral Vein, Percutaneous Approach (ICD-10-PCS; 2016-04-20)
DX: S32.041A Stable burst fracture of fourth lumbar vertebra, initial encounter for closed fracture (principal); G96.11 Dural tear; R71.0 Precipitous drop in hematocrit; M48.06 Spinal stenosis, lumbar region; V43.52XA Car driver injured in collision with other type car in traffic accident, initial encounter; Y92.410 Unspecified street and highway as the place of occurrence of the external cause
CPT/HCPCS: 36415; 36430; 71010; 72100; 72110; 72131; 72148; 80048; 80053; 83540; 83735; 83970; 84100; 84443; 85014; 85018; 85025; 85610; 85730; 86078; 86850; 86900; 86901; 86920; 90686; 93005; 96374; 96375; 97116; 97162; 97530; C1713; C9113; J0690; J1100; J1170; J1200; J1644; J1650; J2250; J2270; J2370; J2405; J2710; J2765; J3010; J3480; J7030; L0639; P9016